=== PATIENT | female | born 1975 | race Caucasian/White ===

== ENCOUNTER 2025-03-09 02:06 | Emergency (ER) | payer BC, SELFPAY ==
[2025-03-09 02:17] VITALS: BP 145/74
[2025-03-09 02:43] VITALS: BP 114/85
[2025-03-09 02:55] LABS: Hematocrit 40.7 % (37.0-47.0); Hemoglobin 12.7 g/dL (12.0-16.0); Mean Corp Hgb Conc. 31.2 g/dL (33.0-37.0); Mean Corpuscular Volume 82.4 fL (81.0-99.0); Nucleated Red Blood Cells % 0 %; Platelet Count 200 10^3/uL (130-400); Red Cell Dist. Width 14.9 % (11.5-14.5)
[2025-03-09 03:00] VITALS: BP 107/71
[2025-03-09 03:09] LABS: ALT (SGPT) 139 U/L (0-35); AST (SGOT) 174 U/L (14-36); Albumin 3.8 g/dl (3.5-5.0); Alkaline Phosphatase 151 U/L (38-126); Blood Urea Nitrogen 12 mg/dl (7-17); Calcium 8.5 mg/dl (8.4-10.2); Carbon Dioxide 25 mmol/L (22-30); Chloride 107 mmol/L (98-107); Glucose 111 mg/dl (70-99); Potassium 3.6 mmol/L (3.5-5.1); Sodium 140 mmol/L (135-145); Total Protein 6.9 g/dl (6.3-8.2); eGFR > 60.00
[2025-03-09 03:14] LABS: INR 0.97; PT 13.4 Sec (11.4-14.6)
[2025-03-09 03:15] LABS: APTT 30.6 Sec (23.4-35.0)
[2025-03-09 03:30] LABS: Troponin I < 0.012 ng/ml
[2025-03-09 03:36] VITALS: BMI 51.5
[2025-03-09 03:39] LABS: TSH 10.20 uIU/ml (0.47-4.68)
[2025-03-09 04:00] VITALS: BP 130/81
[2025-03-09 05:00] VITALS: BP 108/63
--- NOTE | 2025-03-09 05:37 | ED.GENMED ---
History of Present Illness
General
Chief Complaint: Heart Rate Problem
Source: patient and spouse
Exam Limitations: none
Time Seen by Provider: 03/09/25 04:31
Nursing documentation reviewed up to this point in time: agreed with
History of Present Illness
History of Present Illness:
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 No history of recurrence.
She presents with acute febrile illness that began 2 days ago with Tmax yesterday morning of 102 �F. Along with fever she has had intermittent headache, intermittent myalgias but no cough nor congestion or sore throat, no abdominal pain, no nausea
or vomiting, no diarrhea or constipation, no dysuria and urgency and or hematuria, no flank pain. She has not noticed a rash.
No close contacts with similar symptoms.
No recent travel.
She was evaluated by her PCP last night and had COVID and flu testing that was negative. Diagnosed with viral syndrome and recommended to take Tylenol versus ibuprofen.
She awoke tonight with feeling of palpitations, feeling that her heart was beating somewhat rapidly and irregular. No chest pain, no shortness of breath, no dizziness nor lightheadedness. No history of similar episodes in the past.
Upon arrival to the ED, EKG in triage notes atrial fibrillation with rapid ventricular response of 138. No acute ST-T wave abnormalities.
Within 20 to 30 minutes after arrival patient has spontaneously converted to normal sinus rhythm. Palpitations have resolved.
She currently remains asymptomatic.
Past History
Past History
ED Past Medical History: Cancer (Superficial melanoma chest wall, excised. No history of recurrence.) and Other (Obesity, migraine headaches)
ED Past Surgical History: (2008) and Other (Adenoidectomy 1996, gastric bypass 2001; melanoma removal chest wall)
Social History
Tobacco: Non-smoker
Alcohol: None
Drug: None
Personal:
Living: with family
Employment: Employed
Family History
Family History: Negative CAD or Sudden
Phy Exam
Physical Exam
Physical Exam:
GENERAL: 49-year-old overweight female appears her stated age. Bright and alert, pleasant, appears in no acute distress. Afebrile.
EYE: anicteric
NECK: Supple, nontender, no meningismus, no significant adenopathy.
ENT: posterior pharynx is clear, oral mucosa is moist. TM clear b/l, nares patent.
CARDIAC: Regular rate and rhythm. no murmur.
LUNGS: Clear breath sounds bilaterally, no acute respiratory distress, no wheezes/rales/rhonchi
ABDOMEN: Rotund, soft, nondistended, without focal tenderness, no r/g, no cvat. normoactive BS.
NEUROLOGICAL: Alert and oriented x3, no focal neuro deficits. Gait is steady.
SKIN: Warm and dry, normal color, skin intact. No rash.
MUSCULOSKELETAL: No C/C/E. peripheral pulses are full and equal b/l. No palpable tenderness.
PSYCH: Normal and appropriate interaction.
Scores
[id number] Score for Afib Stroke Risk
Age in Years (65=0, 65-74=1, >/=75=2): <65
Sex (Female=+1): Female
Congestive Heart Failure History (Yes=+1): No
Hypertension History (Yes=+1): No
Stroke/TIA/Thromboembolism History (Yes=+2): No
Vascular Disease History (Yes=+1): No
Diabetes Mellitus (Yes=+1): No
Score: 1
Anticoagulation Recommendations: Consider anticoagulation (as validated in nonvalvular fib)
Course
Orders/Labs/Results
Orders:
Orders
03/09/25 02:22
ECG [Electrocardiogram (*1)] Urgent
Reason for Study: Palpitations
EKG- Treatment ONCE
03/09/25 02:48
Complete Blood Count/With Diff Urgent
Comprehensive Metabolic Panel Urgent
Free T4 Urgent
Comment: ADD ON
Lyme Progressive Urgent
Comment: ADD ON
PTT Urgent
Prothrombin Time Urgent
TSH Urgent
Troponin I Urgent
03/09/25 04:35
Electrocardiogram (*1) Urgent
Reason for Study: Palpitations
EKG- Treatment ONCE
03/09/25 04:36
CR Chest - 2 Views Urgent
Comment:
Reason For Exam: palpitations, new onset afib w RVR
03/09/25 04:58
Add On- LAB Urgent
Tests Added?: free T-4
03/09/25 05:21
Add On- LAB Urgent
Tests Added?: Lyme progressive
Abnormal Lab Results
03/09/25
02:48
WBC 3.2 L 10^3/uL
(4.8-10.8)
MCH 25.7 L pg
(27.0-31.0)
MCHC 31.2 L g/dL
(33.0-37.0)
RDW 14.9 H %
(11.5-14.5)
Absolute Lymphs (auto) 0.8 L 10^3/uL
(1.2-3.4)
Monocytes % 9.4 H %
(1.7-9.3)
Glucose 111 H mg/dl
(70-99)
AST 174 H U/L
(14-36)
ALT 139 H U/L
(0-35)
Alkaline Phosphatase 151 H U/L
(38-126)
TSH 10.20 H uIU/ml
(0.47-4.68)
03/09/25 02:48
03/09/25 02:48
Vital Signs
Initial and Last Documented VS:
Initial Vital Signs
Temp Pulse Resp BP Pulse Ox
97.8 F 78 20 145/74 98
07/17/25 02:17 03/09/25 02:17 03/09/25 02:17 03/09/25 02:17 03/09/25 02:17
Last Documented Vital Signs
Temp Pulse Resp BP Pulse Ox
98.0 F 78 22 108/63 96
03/09/25 03:29 03/09/25 05:00 03/09/25 05:00 03/09/25 05:00 03/09/25 05:48
MDM/Problems Addressed
Differential Diagnosis Includes:
Patient presents with palpitations and EKG noting new onset A-fib with rapid ventricular response.
Has spontaneously converted to normal sinus rhythm.
Repeat EKG shows normal sinus rhythm, left axis deviation, no acute ST-T wave abnormalities.
Monitor continues to show normal sinus rhythm without ectopy.
Labs are remarkable for leukopenia with white blood cell count of 3.2. More consistent with viral syndrome.
Chemistries reveal moderately elevated LFTs with AST of 174, ALT of 139, alkaline phosphatase mildly elevated at 151. Normal T. bili. Elevated LFTs new compared to previous labs and patient reports no previous history of elevated LFTs.
TSH is mildly elevated at 10.2. Free T4 is pending.
Troponin is normal.
History of recent febrile illness which may be viral syndrome in nature. She has not had a rash but must consider tickborne illness such as Lyme's disease versus other vector borne illness.
There is no evidence of heart block on EKG.
TSH is mildly elevated and acute thyroid disorder could certainly be a cause for A-fib as well.
Patient denies alcohol use, denies drug use.
Abdomen is soft without appreciable tenderness. Patient denies recent abdominal pain. Cholecystitis, viral hepatitis are unlikely.
Ultimately patient will require follow-up with cardiology.
[id number] score of 1. No indication for anticoagulation.
*Radiology
Radiology exam reviewed: preliminary read by ED provider (Chest x-ray is unremarkable.)
*Pulse Oximetry
SaO2: 96
Oxygen Mode of Delivery: Room air
Patient hypoxic: no
*EKG
Interpreted by ED Provider?: Yes
Interpretation: abnormal
Rate: tachycardiac
Rhythm: a-fib
Milo: left axis deviation
Interval: normal QT interval
QRS Pattern: left vent hypertrophy
Ischemia: non-specific ST changes
*Pharmacy Sales Assistant Interpretation
Rate: normal
Interpretation: normal
Rhythm: sinus
*Critical Care Note
Total Time (30-74mins, 75-104mins- exclusive of procedures): Not Applicable
ED Attending Note
-
Portions of this chart may have been created with voice recognition software.� Occasional wrong word or��sound alike� substitutions may have occurred due to the inherent limitations of voice recognition software.
Discharge Plan
Departure
Patient Disposition: Home (Routine Discharge)
Date of Disposition: 03/09/25
Time of Disposition: 05:49
Patient with high blood pressure during this ER visit?: No
Condition: Good
Discharge Problem:
Paroxysmal atrial fibrillation with RVR, LFT elevation, TSH elevation, Acute viral syndrome
Instructions: Atrial Fibrillation (DC), Fever in adults - ED discharge instructions
Prescriptions:
No Action
No Meds [No Current Medications]
0
dicyclomine 20 MG tablet
20 mg PO QIDPRN PRN (Reason: abdominal pain) Qty: 30 0RF
ondansetron 4 MG tablet,disintegrating
4 mg PO TIDPRN PRN (Reason: NAUSEA) Qty: 15 0RF
Referrals:
Leticia Serrato MD [Active, Cardiology] - Call in 1-3 days for appt
UNKNOWN - PT DOES,NOT KNOW [Family Provider]
Activity Restrictions/Additional Instructions:
Stay well-hydrated on a daily basis. Continue Tylenol versus ibuprofen as needed for fever, aches.
Follow-up with your primary care physician for recheck.
Follow-up with cardiology regarding episode of atrial fibrillation.
Interventions
Interventions:
*Risk Screen - Suicide Last Done: 03/09/25 02:17
*General Assessment Last Done: 03/09/25 03:25
*Neglect/Abuse Screening Last Done: 03/09/25 02:17
*ED- Fall Risk Assessment Last Done: 03/09/25 03:24
*ED COVID-19 Vaccine History Last Done: 03/09/25 03:24
ED- Cardiac Assessment Last Done: 03/09/25 03:30
ED- Pulmonary Assessment Last Done: 03/09/25 03:32
Discharge Date and Time
Print Language: GUAMANIAN
[2025-03-09 06:00] VITALS: BP 121/68
[2025-03-09 12:46] LABS: Lyme Antibody Screen, EIA Negative (Negative)
== END 2025-03-09 06:16 | disposition home or self-care (01) ==
LOC: EMR 02:06
PROVIDERS: EMERGENCY PHYSICIAN Emergency Medicine
DX: I48.0 Paroxysmal atrial fibrillation (principal); B34.9 Viral infection, unspecified; R79.89 Other specified abnormal findings of blood chemistry; Z98.84 Bariatric surgery status; Z85.820 Personal history of malignant melanoma of skin
CPT/HCPCS: 99285; 71046; 80053; 84439; 84443; 84484; 85025; 85610; 85730; 86618; 93005

== ENCOUNTER → 2025-04-12 08:04 | Outpatient (REF) | payer BC, SELFPAY | LOC: HWRCS 08:04 | PROVIDERS: ATTENDING PHYSICIAN Internal Medicine Cardiovascular Disease; FAMILY PHYSICIAN Family Medicine | DX: I48.91 Unspecified atrial fibrillation (principal) | CPT/HCPCS: 93306 ==